=== PATIENT | female | born 1940 | race Caucasian/White ===

== ENCOUNTER 2025-01-07 12:54 | Outpatient (CLI) | payer MEDICARE, SELFPAY ==
--- NOTE | 2025-01-07 13:00 | MRR_ITS ---
PROCEDURE INFORMATION: Exam: MR Abdomen Without Contrast Exam date and time: 01/07/2025 1:50 PM Age: 84 years old Clinical indication: Condition or disease; Kidney or ureter condition; Cyst of kidney; Prior surgery; Surgery date: 6+ months; Surgery type: Breast implants; Additional info: Renal cyst TECHNIQUE: Imaging protocol: Magnetic resonance imaging of the abdomen without contrast. COMPARISON: CT chest abd wo [email or web address] 10/07/2024 11:32 AM FINDINGS: Liver: No mass. Gallbladder and biliary ducts: Unremarkable. No stones. No ductal dilation. Pancreas: Unremarkable. No ductal dilation. Spleen: Unremarkable. No splenomegaly. Adrenal glands: Unremarkable. No mass. Kidneys: 2.8 cm simple cyst in the right kidney I think Stomach and bowel: Visualized stomach and intestines are unremarkable. Intraperitoneal space: No free fluid. Vasculature: No abdominal aortic aneurysm. Lymph nodes: No enlarged nodes. Bones/joints: Unremarkable. No suspicious lesions. Soft tissues: Unremarkable. MR/MR abdomen wo con [id number] IMPRESSION: 2.8 cm simple cyst in the right kidney. COMMENTS: Consistent with the [employer]'s Incidental Findings Committee white paper (J Am Anat Radiol 2018): Any incidental renal lesion less than 1 cm or classified as too small to characterize, or any incidental cystic renal lesion characterized as simple-appearing, is likely benign. No follow-up imaging is recommended for these lesions per consensus recommendations based on imaging criteria.
== END 2025-01-07 12:55 | disposition home or self-care (01) ==
LOC: RAD 12:55
PROVIDERS: PCP Internal Medicine; Visit Provider Internal Medicine
DX: N28.1 Cyst of kidney, acquired (principal); Z98.82 Breast implant status
CPT/HCPCS: 74181

== ENCOUNTER → 2025-02-02 12:17 | Outpatient (BNVA) | payer MEDICARE, SELFPAY | PROVIDERS: PCP Internal Medicine; Visit Provider Surgery | DX: Z12.11 Encounter for screening for malignant neoplasm of colon (principal) | CPT/HCPCS: 99024; 99203 ==